=== PATIENT | male | born 1990 | race Caucasian/White ===

== ENCOUNTER 2017-09-29 21:58 | Emergency (ER) | payer OTHER ==
[~2017-09-29] VITALS: Ht 188 cm; Wt 68.0 kg
--- NOTE | 2017-09-29 21:58 | NUR ---
"BEEN THROWING UP AND HAVENT SLEPT FOR 5 DAYS; DETOXING FROM HEROIN WITH LAST USE BEING YESTERDAY". PT IS HYPOTENSIVE BUT OTHERWISE VSS NO ACUTE DISTRESS NOTED AT THIS TIME. SKIN IS WARM AND INTACT. WILL CONTINUE TO MONITOR FOR ANY CHANGES DURING THE SHIFT.
--- NOTE | 2017-09-29 21:59 | NUR ---
ER MD IBARRA AT BEDSIDE
[2017-09-29] MEDS ORDERED: ONDANSETRON 4 MG TAB.RAPDIS ONE (22:46)
[2017-09-29] MEDS: ONDANSETRON 4 MG TAB.RAPDIS SL ONE (22:48)
--- NOTE | 2017-09-29 23:08 | NUR ---
PO CHALLENGE PASSED. D/C INSTRUCTIONS GIVEN TO PATIENT.
[2017-09-29 23:13] VITALS: BP 106/67
== END 2017-09-29 23:13 | disposition home or self-care (01) ==
LOC: ER 21:59
DX: R11.2 Nausea with vomiting, unspecified (principal); F41.9 Anxiety disorder, unspecified; F10.10 Alcohol abuse, uncomplicated; Y90.9 Presence of alcohol in blood, level not specified
CPT/HCPCS: 99283; A4606; Q0162; Z7610